=== PATIENT | male | born 1955 | race Hispanic/Latino ===

== ENCOUNTER 2020-07-31 18:26 | Inpatient (IN) | payer OTHER ==
[~2020-07-31] VITALS: Ht 170.2 cm; Wt 78.8 kg
[2020-07-31 19:13] LABS: BASOPHILS % (AUTO) 0.7 % (0.0-5.0); EOSINOPHILS % (AUTO) 3.7 % (0.0-8.0); HEMATOCRIT 45.1 % (42-54); LYMPHOCYTES % (AUTO) 13.9 % (21.0-51.0); MEAN CORPUSCULAR HEMOGLOBIN 29.6 pg (27.0-33.0); MEAN CORPUSCULAR HGB CONC 34.4 g/dL (32.0-36.0); MEAN CORPUSCULAR VOLUME 86.2 fL (79-99); MONOCYTES % (AUTO) 9.6 % (3.0-13.0); NEUTROPHILS % (AUTO) 71.5 % (40.0-77.0); PLATELET COUNT (AUTO) 273 K/uL (130-400); RED BLOOD CELL COUNT(AUTO) 5.23 MIL/uL (4.50-6.20); RED CELL DISTRIBUTION WIDTH 12.7 % (11.0-15.5); WHITE BLOOD COUNT (AUTO) 9.5 K/uL (4.8-10.8)
[2020-07-31] MEDS ORDERED: ONDANSETRON HCL 4 MG/2 ML VIAL ONE (19:19)
[2020-07-31 19:22] LABS: APPEARANCE,URINE Clear (CLEAR); BILIRUBIN,URINE Negative (NEGATIVE); COLOR,URINE Yellow (YELLOW); GLUCOSE, URINE (UA) Negative (NEGATIVE); KETONES,URINE Negative (NEGATIVE); LEUKOCYTE ESTERASE ,URINE Negative (NEGATIVE); NITRATE,URINE Negative (NEGATIVE); OCCULT BLOOD,URINE Negative (NEGATIVE); PROTEIN,URINE Negative (NEGATIVE)
[2020-07-31 19:23] LABS: CREATININE 0.9 mg/dL (0.5-1.5); POTASSIUM 4.2 mmol/L (3.5-5.1)
[2020-07-31 19:27] LABS: ALBUMIN 3.9 g/dL (3.5-5.0); BILIRUBIN,TOTAL 0.6 mg/dL (0.2-1.0); TOTAL PROTEIN, SERUM 7.7 g/dL (6.0-8.3)
[2020-07-31] MEDS ORDERED: SODIUM CHLORIDE 0.9% 1000ML 1,000 ML IV ONE ×2 (19:35→23:01)
[2020-07-31 19:37] LABS: B-TYPE NATRIURETIC PEPTIDE 8 pg/mL (0-100)
[2020-07-31] MEDS ORDERED: IOHEXOL-350 75 ML VIAL IV ONE (20:05)
[2020-07-31] MEDS ORDERED: DIPHENHYDRAMINE HCL 25 MG CAPSULE PO PRN (23:00)
[2020-07-31] MEDS ORDERED: NITROGLYCERIN 0.4 MG SL TAB SL PRN (23:00)
[2020-07-31] MEDS ORDERED: ACETAMINOPHEN 325 MG TAB PO PRN ×2 (23:00)
[2020-08-01] MEDS ORDERED: CLOTRIMAZOLE 30 GM CREAM.GM. TP ONE (00:29)
[2020-08-01 04:37] LABS: HEMATOCRIT 39.5 % (42-54); MEAN CORPUSCULAR HEMOGLOBIN 29.3 pg (27.0-33.0); MEAN CORPUSCULAR HGB CONC 33.9 g/dL (32.0-36.0); MEAN CORPUSCULAR VOLUME 86.4 fL (79-99); PLATELET COUNT (AUTO) 223 K/uL (130-400); RED BLOOD CELL COUNT(AUTO) 4.57 MIL/uL (4.50-6.20); RED CELL DISTRIBUTION WIDTH 12.9 % (11.0-15.5); WHITE BLOOD COUNT (AUTO) 7.7 K/uL (4.8-10.8)
[2020-08-01 04:48] LABS: ALBUMIN 3.2 g/dL (3.5-5.0); CREATININE 0.8 mg/dL (0.5-1.5); MAGNESIUM 1.8 mg/dL (1.80-2.40)
[2020-08-01 04:52] LABS: BASOPHILS % (MANUAL) 2 % (0-2); LYMPHOCYTES % (MANUAL) 22 % (22-44); MAN.DIFF COMMENT-IMPRESSION MANUAL DIFFERENTIAL; MONOCYTES % (MANUAL) 12 % (2-9); PLATELET MORPHOLOGY COMMENT ADEQUATE; SEGMENTED NEUTROPHILS % 64 % (40-70)
[2020-08-01 04:59] LABS: BILIRUBIN,TOTAL 0.7 mg/dL (0.2-1.0); TOTAL PROTEIN, SERUM 6.4 g/dL (6.0-8.3)
[2020-08-01] MEDS ORDERED: ENOXAPARIN SODIUM 30 MG/0.3 ML SQ ONE (07:01)
[2020-08-01] MEDS ORDERED: FAMOTIDINE 20MG TAB 20 MG TAB ONE (07:01)
[2020-08-01 08:50] VITALS: BP 141/95
[2020-08-01 11:00] VITALS: BP 136/86
[2020-08-01] MEDS ORDERED: PHARMACY COMMUNICATION MISC SCH (11:00)
[2020-08-01] MEDS ORDERED: MAGNESIUM CITRATE 296 ML SOLUTION ONE (11:55)
[2020-08-01] MEDS: METRONIDAZOLE 500MG/100ML BAG 100 ML IVPB SCH ×2 (11:58→19:00)
[2020-08-01] MEDS: LEVOFLOXACIN 500 MG/D5W 100 ML 100 ML IV SCH (11:58)
[2020-08-01] MEDS: LACTULOSE 20 GM/30 ML UDCUP PO SCH ×2 (11:59)
[2020-08-01] MEDS: ENOXAPARIN SODIUM 30 MG/0.3 ML SQ SCH (12:00)
[2020-08-01] MEDS: FAMOTIDINE 20MG TAB 20 MG TAB PO SCH ×2 (12:00→21:10)
[2020-08-01] MEDS ORDERED: MAGNESIUM CITRATE 296 ML SOLUTION PO SCH (13:00)
[2020-08-01] MEDS: SIMETHICONE 80 MG TAB.CHEW PO SCH ×2 (13:19→21:10)
[2020-08-01 15:00] VITALS: BP 136/87
[2020-08-01] MEDS ORDERED: PEG 3350/NA SULF,BICARB,CL/KCL 4000 ML SOLN PO SCH (15:00)
[2020-08-01] MEDS ORDERED: KETOROLAC TROMETHAMINE 15MG/ML ONE (16:08)
[2020-08-01] MEDS ORDERED: KETOROLAC TROMETHAMINE 15MG/ML IV PRN (16:15)
[2020-08-01] MEDS ORDERED: DICYCLOMINE HCL 20 MG TAB PO SCH (18:00)
[2020-08-01 19:29] VITALS: BP 135/94
[2020-08-01] MEDS: CLOTRIMAZOLE 30 GM CREAM.GM. TP SCH (21:00)
--- NOTE | 2020-08-01 21:30 | NUR ---
note PAGED DR. BURNS TO INFORM HIM THAT THE PT WAS REFUSING TO TAKE HIS GOLYTLY, MAG CITRATE AND THE TAP WATER ENEMA. PT WAS OFFERED TO HAVE AN NG TUBE PLACED AND HE REFUSED. STATING THAT HE WOULD ONLY GET THE NG TUBE IF HE WAS SEDATED. DR. BURNS SAID IF HE WOULD NOT PREP THEN THEY WOULD NOT BE ABLE TO PROCEED WITH THE COLONOSCOPY. WILL RE-EDUCATE THE PT ON THE IMPORTANCE OF PREPPING AND INTERVENTIONS TO DISIMPACT.
[2020-08-01] MEDS ORDERED: MORPHINE SULFATE 2 MG/ML 1ML SYG IVP ONE (23:00)
[2020-08-01 23:32] VITALS: BP 145/86
[2020-08-02] VITALS (15 sets, daily range): BP systolic 115–153; BP diastolic 66–91
[2020-08-02] MEDS ORDERED: MORPHINE SULFATE 2 MG/ML 1ML SYG ONE (00:12)
[2020-08-02] MEDS: ONDANSETRON HCL 4 MG/2 ML VIAL IV PRN ×2 (00:23→16:59)
--- NOTE | 2020-08-02 01:00 | NUR ---
HOSPITALIST JEAN-CLAUDE WHIPPLE NP MADE AWARE OF PT REFUSING PREP AND NGT.
--- NOTE | 2020-08-02 01:00 | NUR ---
NG TUBE ATTEMPTED TO PLACE NGT. TUBE WAS HALF WAY INSERTED WHEN PT PULLED OUT THE NGT. REPORTS HE CAN "FEEL THE TUBE". PT REFUSING ANOTHER ATTEMPT TO REINSERT.
[2020-08-02] MEDS: METRONIDAZOLE 500MG/100ML BAG 100 ML IVPB SCH ×3 (03:24→20:50)
[2020-08-02] MEDS: SODIUM CHLORIDE 0.9% 1000ML 1,000 ML IV SCH ×2 (03:24→15:56)
--- NOTE | 2020-08-02 05:00 | NUR ---
REFUSED TAP WATER ENEMA FOR THIS TIME.
--- NOTE | 2020-08-02 05:18 | NUR ---
CANCELLED COLONOSCOPY D/T FAILED PREP. PT REFUSED TO TAKE PRESCIBED MEDS FOR PREP. SPOKE TO DR. BURNS AT BEGINING OF SHIFT ABOUT PT NOT WANTING TO COMPLY. REEDUCATED PT SEVERAL TIMES THROUGHOUT SHIFT IMPORTANCE OF PREP FOR COLONOSCOPY AND TO EVACUATE BOWELS- PT CONT TO REFUSE D/T REPORTS OF ABDOMINAL CRAMPS. PAIN MEDICATION WAS ADMIN, PT CONT TO REFUSE.
[2020-08-02 06:04] LABS: HEMATOCRIT 44.2 % (42-54); MEAN CORPUSCULAR HEMOGLOBIN 29.4 pg (27.0-33.0); MEAN CORPUSCULAR HGB CONC 33.7 g/dL (32.0-36.0); MEAN CORPUSCULAR VOLUME 87.4 fL (79-99); RED BLOOD CELL COUNT(AUTO) 5.06 MIL/uL (4.50-6.20); RED CELL DISTRIBUTION WIDTH 12.4 % (11.0-15.5); WHITE BLOOD COUNT (AUTO) 9.9 K/uL (4.8-10.8)
[2020-08-02 06:12] LABS: ALBUMIN 3.3 g/dL (3.5-5.0); CREATININE 0.7 mg/dL (0.5-1.5); MAGNESIUM 1.8 mg/dL (1.80-2.40); POTASSIUM 3.6 mmol/L (3.5-5.1); TOTAL PROTEIN, SERUM 6.7 g/dL (6.0-8.3)
[2020-08-02] MEDS: CLOTRIMAZOLE 30 GM CREAM.GM. TP SCH ×2 (09:00→21:00)
[2020-08-02] MEDS: PHARMACY COMMUNICATION MISC SCH ×2 (09:00→17:00)
[2020-08-02] MEDS: ENOXAPARIN SODIUM 30 MG/0.3 ML SQ SCH (09:00)
[2020-08-02] MEDS: FAMOTIDINE 20MG TAB 20 MG TAB PO SCH ×2 (09:32→20:50)
[2020-08-02] MEDS: SIMETHICONE 80 MG TAB.CHEW PO SCH ×3 (09:32→20:50)
[2020-08-02] MEDS: LEVOFLOXACIN 500 MG/D5W 100 ML 100 ML IV SCH (09:33)
--- NOTE | 2020-08-02 10:03 | NUR ---
PER PATIENT, HE DOES NOT TAKE ANY PRESCRIBED HOME MEDICATIONS AT THIS TIME.
[2020-08-02] MEDS: LACTULOSE 20 GM/30 ML UDCUP PO SCH ×4 (11:00→23:04)
[2020-08-02] MEDS ORDERED: PROPOFOL 10 MG/ML 20ML VIAL IV ONE (11:21)
--- NOTE | 2020-08-02 15:00 | NUR ---
CM NOTE/IA MET WITH PATIENT AT BEDSIDE. PER PATIENT, LIVES WITH HIS AND HIS 80 YR OLD MOTHER, IS INDEPENDENT WITH ADLS, DRIVES, NO HOME HEALTH OR PROVIDER SERVICES, NO DME IN USE AND FEELS SAFE TO RETURN HOME ONCE DISCHARGED FROM HOSPITAL. NOTED SELF REFERRAL/NO INSURANCE. PATIENT GIVEN SELF REFERRAL/MEDICAL PACKET ALONG WITH GOOD RX CARD, PATIENT VERBALIZED UNDERSTANDING OF INFORMATION. Addendum: 08/02/20 at 1502 by FARIDEH INGRAM RN CM Amended: Links added.
[2020-08-02] MEDS: HYDROCODONE/ACETAMINOPHEN 5/325 MG TAB PO PRN ×2 (15:54→21:10)
--- NOTE | 2020-08-02 20:38 | NUR ---
NOTE PT REFUSES TO TAKE HIS GOLYTELY UNTIL HE IS "PAIN FREE". REPEATEDLY REPORTS THAT NO ONE IS TRYING TO HELP HIM. INFORMED HIM THAT HIS PAIN MEDICATION IS NOT AVAILABLE AT THIS TIME, BUT WILL BRING IT TO HIM WHEN IT BECOMES AVAILABLE. PT REPORTS "THAT'S NOT GOOD ENOUGH". INFORMED PT THAT I WOULD CALL THE DR TO TRY AND GET AN ORDER FOR A BREAKTHROUGH PAIN MED, "PT SAYS IT BETTER BE A STRONG ONE. I DON'T WANT TO FEEL ANYTHING". INFORMED JEAN-CLAUDE WHIPPLE NP. PIPE SUPERVISOR ORDERED ONE TIME ORDER PAIN MED- MED PLACED IN [employer]. WILL CARRY OUT ORDERS AND ATTEMPT FOR PT TO CONT WITH GOLYTELY PROCESS.
[2020-08-02] MEDS ORDERED: HYDROMORPHONE HCL 0.5 MG/0.5 ML ML ONE (20:44)
[2020-08-02] MEDS ORDERED: HYDROMORPHONE HCL 0.5 MG/0.5 ML ML IVP SCH (20:45)
--- NOTE | 2020-08-02 21:01 | NUR ---
NOTE PT NOT WANTING TO TAKE LACTULOSE UNTIL HE GETS A PAIN MEDICATION. I INFORMED HIM DILAUDID WAS A PAIN MEDICATION AND HE SAID THAT'S NOT STRONG ENOUGH. HE WILL TAKE THE LACTULOSE WHEN HE TAKES ANOTHER PAIN MEDICATION/
--- NOTE | 2020-08-02 21:12 | NUR ---
NOTE ADMINISTERED HYDROCODONE REQUESTED/ORDERED. WHEN I HANDED THE PT THE MEDICATION IN THE CUP HE REPORTS THAT IT WAS NOT HYDROCODONE. I OPENED THE PACKAGE IN FRONT OF HIM AND SHOWED HIM THE PACKAGE. HE THEN SAID "OH IT IS" AND CONSUMED THE PILL. PT STILL REFUSING TO TAKE THE LACTULOSE AND GOLYTELY UNTIL HE IS "PAIN FREE". INFORMED HIM THAT HE WILL NEED TO BE PREPPED BEFORE THE COLONOSCOPY AND HE SAID HE ALREADY KNOWS THAT. HALF A CONTAINER OF GOLYTELY REMAINS AT BEDSIDE. REFUSED TAP WATER ENEMA AT THIS TIME WELL. WILL TRY AGAIN AT 0500.
--- NOTE | 2020-08-02 23:15 | NUR ---
NOTE PT TOOK THE LACTULOSE SAID HE WAS ONLY TAKING IT SINCE I GOT HIM THE PAIN MEDICATION. INFORMED HIM EVERYTHING THAT HAS BEEN ORDERED IS TOWARDS HIS BENEFIT. PT DID REPORT THAT HE WAS NOT GOING TO TAKE ANYMORE IF THE GOLYTELY, THAT IT MAKES HIM GO TO THE RESTROOM "TOO MUCH". EDUCATED THAT WAS THE PURPOSE OF THE MED AND IT IS TO PREP HIS BOWELS FOR THE COLONOSCOPY. PT CONT TO SAY HE IS "DONE". HE JUST WANTS TO "SLEEP THE REST OF THE NIGHT".
[2020-08-03] VITALS (21 sets, daily range): BP systolic 124–171; BP diastolic 64–102
[2020-08-03] MEDS: PHARMACY COMMUNICATION MISC SCH ×4 (01:00→20:17)
--- NOTE | 2020-08-03 03:20 | NUR ---
LASHONDA CALVERT PT WAS ADMIN IV TORADOL PER NOV. PT REPORTS THAT HE DID NOT "FEEL" THE MEDICATION AND IS REQUESTING MORE. I TOLD HIM THAT MORE PAIN MED IS NOT AVAILABLE AT THIS TIME D/T TIME FOR NEXT DOSE IS TOO SOON. PT VISIBLY UPSET AND RAISING VOICE THAT HE "NEEDS" MORE PAIN MEDICATION "NOW". REPORTS THAT HE WANTS TO BE "PAIN FREE". SPOKE WITH JEAN-CLAUDE WHIPPLE NP ABOUT PAIN MED SITUATION. JEAN-CLAUDE GAVE THE OK TO ADMIN THE NORCO WITH A SMALL SIP OF WATER EVEN THOUGH THE PT IS NPO AND TIME FOR NEXT DOSE TOO SOON. 321- ADMIN PO NORCO. PT THEN REPORTS THAT HE TAKES HIS 'S PAIN MEDICATION AT HOME AND HE NEVER HAS TO WAIT THIS LONG FOR PAIN PILLS. FREQUENT REEDUCATION PROVIDED ON BOWEL PREP PROVIDED WELL. PT HAS NOT COMPLETED GOLYTELY. REPORTS THAT HE WILL TAKE IT ONCE HE HAS NO PAIN. EVEN VERBALIZED THIS TO ANOTHER NURSE DANIELE KONG.
[2020-08-03] MEDS: HYDROCODONE/ACETAMINOPHEN 5/325 MG TAB PO PRN (03:22)
[2020-08-03] MEDS: METRONIDAZOLE 500MG/100ML BAG 100 ML IVPB SCH ×3 (03:22→20:19)
--- NOTE | 2020-08-03 04:00 | NUR ---
WATER TAP ENEMA DONE AT THIS TIME. PT CARA WELL. SOME C/O GAS AND CRAMPING. SEMI SOLID STOOL PIECES EXCRETED.
[2020-08-03 05:33] LABS: BASOPHILS % (AUTO) 0.8 % (0.0-5.0); EOSINOPHILS % (AUTO) 0.8 % (0.0-8.0); HEMATOCRIT 42.9 % (42-54); LYMPHOCYTES % (AUTO) 9.3 % (21.0-51.0); MEAN CORPUSCULAR HEMOGLOBIN 29.4 pg (27.0-33.0); MEAN CORPUSCULAR HGB CONC 33.8 g/dL (32.0-36.0); MEAN CORPUSCULAR VOLUME 86.8 fL (79-99); MONOCYTES % (AUTO) 8.5 % (3.0-13.0); PLATELET COUNT (AUTO) 280 K/uL (130-400); RED BLOOD CELL COUNT(AUTO) 4.94 MIL/uL (4.50-6.20); RED CELL DISTRIBUTION WIDTH 12.6 % (11.0-15.5)
[2020-08-03 06:03] LABS: ALBUMIN 3.5 g/dL (3.5-5.0); CREATININE 0.9 mg/dL (0.5-1.5); POTASSIUM 4.2 mmol/L (3.5-5.1); TOTAL PROTEIN, SERUM 6.9 g/dL (6.0-8.3)
[2020-08-03] MEDS: FAMOTIDINE 20MG TAB 20 MG TAB PO SCH ×2 (09:00→20:19)
[2020-08-03] MEDS: ENOXAPARIN SODIUM 30 MG/0.3 ML SQ SCH (09:00)
[2020-08-03] MEDS: CLOTRIMAZOLE 30 GM CREAM.GM. TP SCH ×2 (09:00→21:00)
[2020-08-03] MEDS ORDERED: HYDROMORPHONE 1 MG/1 ML AMP IVP PRN (09:45)
[2020-08-03] MEDS ORDERED: LUBIPROSTONE 24 MCG CAP PO SCH (09:45)
[2020-08-03] MEDS: HYDROMORPHONE 1 MG/1 ML AMP IVP PRN ×4 (10:15→23:33)
[2020-08-03] MEDS: LACTULOSE 20 GM/30 ML UDCUP PO SCH ×2 (10:49→10:50)
[2020-08-03] MEDS: SODIUM CHLORIDE 0.9% 1000ML 1,000 ML IV SCH ×2 (10:57→22:48)
[2020-08-03] MEDS: LEVOFLOXACIN 500 MG/D5W 100 ML 100 ML IV SCH (11:39)
[2020-08-03] MEDS ORDERED: PROPOFOL 10 MG/ML 20ML VIAL IV ONE (12:44)
[2020-08-03] MEDS: SIMETHICONE 80 MG TAB.CHEW PO SCH ×3 (14:00→20:19)
[2020-08-03] MEDS: PANTOPRAZOLE SODIUM 40 MG TABLET.DR PO SCH (17:16)
[2020-08-03] MEDS: LUBIPROSTONE 24 MCG CAP PO SCH (17:16)
[2020-08-03] MEDS ORDERED: PEG 3350/NA SULF,BICARB,CL/KCL 4000 ML SOLN PO SCH (18:15)
[2020-08-03] MEDS: ONDANSETRON HCL 4 MG/2 ML VIAL IV PRN (19:29)
--- NOTE | 2020-08-03 19:40 | NUR ---
DR. BURNS CALLED: DR. Burns called thru phone to asked if NG tube was inserted to pt. Following orders were given: 1. Once NG tube inserted, have the pt consume 1 galloon tonight and 2 galloons to start at noon jameson (08/04/20). 2. Give Golytely via NG 8oz q [address] pt on clear liquid at breakfast. 4. Check patient's potassium tonight. 5. Place pt on Potassium and Magnesium protocol. 6. Schedule Colonoscopy on ( 08/05/2020) at noon.
--- NOTE | 2020-08-03 19:51 | NUR ---
DR. BURNS ATTEMPTED TO CONTACT DR. BURNS VIA TEXT MESSAGE ([facility] [place]) FOR CLARIFICATION ON MEDICATION ORDER, JERED VIA NG TUBE 8OZ [id number]. NO RESPONSE AT THIS TIME. PASSED INFORMATION ON TO SECURITY CONTROL ROOM OFFICER NURSE DEEPAK.
--- NOTE | 2020-08-03 22:28 | NUR ---
Alprazolam Daughter reported pt was having anxiety attack. Informed on-call hospitalist and ordered Xanax 1 mg po x 1 dose only.
[2020-08-03] MEDS ORDERED: ALPRAZOLAM 1 MG TAB PO ONE (22:30)
[2020-08-03] MEDS ORDERED: POTASSIUM CHLORIDE 10% ELIXIR 20 MEQ/15 ML UDCUP PO PRN (23:15)
[2020-08-03] MEDS ORDERED: MAGNESIUM 2GM PREMIX 50ML 50 ML IV PRN (23:15)
[2020-08-03] MEDS ORDERED: LIDOCAINE HCL-MPF 1% 2ML VIAL IV PRN (23:15)
[2020-08-03] MEDS ORDERED: POTASSIUM CHLORIDE 20 MEQ ERTAB PO PRN (23:15)
--- NOTE | 2020-08-03 23:55 | NUR ---
NGT insertion Explained to pt and daughter. Agreed and verbalized understanding. NG tube 14Fr inserted with the help of my charge Nurse. Pt tolerated the procedure and cooperates very well. Agreed also that he will not going to pull out the NG tube anymore. Pt verbalized he will signed the refusal form already once he pulled it out again.
[2020-08-04] VITALS (25 sets, daily range): BP systolic 100–154; BP diastolic 68–120
[2020-08-04] MEDS: ONDANSETRON HCL 4 MG/2 ML VIAL IV PRN (02:11)
[2020-08-04] MEDS: METRONIDAZOLE 500MG/100ML BAG 100 ML IVPB SCH ×2 (02:50→11:15)
[2020-08-04] MEDS: HYDROMORPHONE 1 MG/1 ML AMP IVP PRN (03:35)
--- NOTE | 2020-08-04 03:50 | NUR ---
Golytely Stopped: Pt was fully awake and alert. Complained that he cannot tolerate the Golytely anymore. Noted shallow breathing with O2Sat at 88-90% Room air. Pt. was immediately hooked to O2 at 2lpm via NC and O2 increased to 94%. Approx. 2.5 L of Golytely was given to pt. Pt. feels abdominal cramping and defecated only a small amount of soft BM. Noted air in the abdomen during auscultation. Golytely via NG stopped. No apparent distress noted
[2020-08-04] MEDS ORDERED: ALPRAZOLAM 1 MG TAB PO ONE (04:45)
[2020-08-04] MEDS ORDERED: ALPRAZOLAM 1 MG TAB ONE (04:45)
--- NOTE | 2020-08-04 04:45 | NUR ---
Anxiety Attack: Informed on-call hospitalist with the following VS: BP: 150/98 ; HR: 106 ; RR: 20 ; Temp: 97.7 and O2Sat at 94% at 2LPm via NC. Ordered to give Alprazolam 1 mg po x 1 dose only.
[2020-08-04] MEDS: SODIUM CHLORIDE 0.9% 1000ML 1,000 ML IV SCH ×3 (06:18→17:15)
--- NOTE | 2020-08-04 06:45 | NUR ---
Decompression Pt was rechecked at this time. He was sleeping but easily woke up when touched. Pt. throw up a moderate amount of greenish fluid and was noted to having . VS are as follows: BP: 144/78 ; HR: 130 ; RR: 25 and O2Sat at 82-85% with O2 at 4lpm via NC. Pt was then put to LIS for decompression. Pt heart rate decreased to 109-115 but O2Sat just stayed between 87-88% with O2 at 4LPM via NC. Pt was then put to non-rebreather mask and O2Sat went up to 92-95%. Pt just went back to sleep. Was asked if he was ok , pt verbalized he feels better. Charge Nurse assisted the greeting card writer during the process. Informed Day shift RN.
[2020-08-04 08:52] LABS: ABG BASE EXCESS -7.6 mmol/L (-2.0-3.0); ABG HCO3 21.5 mmol/L (21.0-28.0); ABG OXYGEN SATURATION 96.3 % (95.0-99.0); ABG PCO2 59 mmHg (35-48)
[2020-08-04] MEDS: FAMOTIDINE 20MG TAB 20 MG TAB PO SCH (09:00)
[2020-08-04] MEDS: SIMETHICONE 80 MG TAB.CHEW PO SCH (09:00)
[2020-08-04] MEDS: CLOTRIMAZOLE 30 GM CREAM.GM. TP SCH ×2 (09:00→20:42)
[2020-08-04] MEDS: PANTOPRAZOLE SODIUM 40 MG TABLET.DR PO SCH (09:00)
[2020-08-04] MEDS: PHARMACY COMMUNICATION MISC SCH ×2 (09:00→16:14)
[2020-08-04 09:33] LABS: BASOPHILS % (AUTO) 0.6 % (0.0-5.0); EOSINOPHILS % (AUTO) 0.3 % (0.0-8.0); LYMPHOCYTES % (AUTO) 6.9 % (21.0-51.0); MEAN CORPUSCULAR HEMOGLOBIN 29.7 pg (27.0-33.0); MEAN CORPUSCULAR HGB CONC 32.6 g/dL (32.0-36.0); MEAN CORPUSCULAR VOLUME 91.1 fL (79-99); MONOCYTES % (AUTO) 6.8 % (3.0-13.0); NEUTROPHILS % (AUTO) 84.9 % (40.0-77.0); PLATELET COUNT (AUTO) 224 K/uL (130-400); RED BLOOD CELL COUNT(AUTO) 4.61 MIL/uL (4.50-6.20); RED CELL DISTRIBUTION WIDTH 13.2 % (11.0-15.5); WHITE BLOOD COUNT (AUTO) 11.2 K/uL (4.8-10.8)
[2020-08-04 09:46] LABS: ALBUMIN 3.2 g/dL (3.5-5.0); BILIRUBIN,TOTAL 0.8 mg/dL (0.2-1.0); CREATININE 0.7 mg/dL (0.5-1.5); MAGNESIUM 1.5 mg/dL (1.80-2.40); PHOSPHORUS 3.7 mg/dL (2.5-4.9); POTASSIUM 4.4 mmol/L (3.5-5.1); TOTAL PROTEIN, SERUM 6.7 g/dL (6.0-8.3)
[2020-08-04] MEDS ORDERED: FUROSEMIDE 10 MG/ML 2ML VIAL IV SCH (10:15)
[2020-08-04] MEDS: LUBIPROSTONE 24 MCG CAP PO SCH ×2 (10:44→16:14)
[2020-08-04] MEDS: LACTULOSE 20 GM/30 ML UDCUP PO SCH (11:00)
[2020-08-04] MEDS: ENOXAPARIN SODIUM 30 MG/0.3 ML SQ SCH (11:16)
[2020-08-04] MEDS ORDERED: LORAZEPAM 2 MG/ML 1 ML VIAL IVP PRN (11:45)
[2020-08-04] MEDS ORDERED: PEG 3350/NA SULF,BICARB,CL/KCL 4000 ML SOLN PO SCH (12:00)
[2020-08-04] MEDS ORDERED: MAGNESIUM 2GM PREMIX 50ML 50 ML IV SCH (12:15)
[2020-08-04] MEDS: ACETYLCYSTEINE 10% 100MG/ML 4ML VIAL PO SCH ×2 (12:15→16:15)
--- NOTE | 2020-08-04 13:00 | NUR ---
TRANSFER TO ICU PT ARRIVED TO ICU #[id number] AT 1300. PT PLACED ON BIPAP AND FIO2 INCREASED TO REACH ADEQUATE SPO2 LEVELS. PT ABDOMEN COMPLETELY DISTENDED, COMPLAINING OF ABDOMINAL PAIN. DR. LA WAS CALLED TO INFORM OF CONSULT. MURILLO CATHETER PLACED AND IAP 13.
--- NOTE | 2020-08-04 13:00 | NUR ---
NOTE PATIENT TRANSFERRED TO ROM 217 PER GURDEEP DONOHUE'S ORDERS FOR SHE WAS CONSULTED FOR CRITICAL CARE. DR HOUSTON ORDERED IT SINCE THIS AM PATIENT STARTED HAVING INCREASED SOB AND WAS UP TO 100% NRB AND SATS 93%. BBS DIMINISHED AND ABDOMEN ENLARGED AND HARD TO TOUCH. PATIENT WAS SUPPOSED TO BE GETTING PREPPED FOR COLONOSCOPY AND INSTEAD HE IS ON LIWS THROUGH NGT. NGT WAS ADJUSTED ABOUT 6 CM ADVANCED SINCE THERE WAS NOT MUCH OUTPUT.
[2020-08-04] MEDS ORDERED: HYDROMORPHONE HCL 0.5 MG/0.5 ML ML IVP PRN (13:30)
--- NOTE | 2020-08-04 13:40 | NUR ---
NOTE SPOKE TO DR LA AND RELAYED INFORMATION REGARDING EMERGENT RESULTS ABOUT CT ABD AND PELVIS CALLED TO ME PER RADIOLOGIST. WAS MADE AWARE THAT PATIENT COULD HAVE POSSIBLE ISCHEMIC BOWEL. ALSO TOLD ME THAT HE NOTED AIR IN THE COLON AND WALL OF THE COLON. DR LA WAS MADE AWARE OF THIS AND ALSO OF THE CONSULT THAT WAS JUST PLACED.
[2020-08-04] MEDS ORDERED: HYDROMORPHONE HCL 0.5 MG/0.5 ML ML ONE (13:42)
[2020-08-04] MEDS ORDERED: VANCOMYCIN 1GM+NS 250ML 250 ML IV SCH (13:45)
[2020-08-04] MEDS ORDERED: VANCOMYCIN PROTOCOL PER PHARMACY IV SCH (13:45)
[2020-08-04] MEDS: ZOSYN 3.375GM+NS 50ML 50 ML IV SCH ×2 (13:58→20:42)
[2020-08-04] MEDS ORDERED: COMPOUND IV REFRIGERATED 1 EACH IVSOLN MISC PRN (14:00)
[2020-08-04] MEDS ORDERED: VANCOMYCIN 1.75 GM in SODIUM CHLORIDE 0.9% 250 ML IV SCH (14:00)
[2020-08-04 14:05] LABS: ABG BASE EXCESS -5.7 mmol/L (-2.0-3.0); ABG HCO3 19.6 mmol/L (21.0-28.0); ABG PCO2 38 mmHg (35-48)
[2020-08-04] MEDS: M.V.I. IV [ADULT] 10 ML, FOLIC ACID 1 MG, THIAMINE HCL 100 MG in SODIUM CHLORIDE 0.9% 1... IV SCH (16:08)
[2020-08-04 16:13] LABS: INR 1.14 (0.85-1.15); PARTIAL THROMBOPLASTIN TIME 25.3 SEC (26.3-35.5); PROTHROMBIN TIME 12.2 SEC (9.6-11.6)
--- NOTE | 2020-08-04 16:30 | NUR ---
DR. LA ROUNDS DR. LA WITH PA AT BEDSIDE. REVIEWED PT RECENT CT SCAN AND COLONOSCOPY REPORTS. HAS SPOKEN WITH PT AND DAUGHTER OF MEDICAL PLAN. NO ORDERS FOR SURGERY TODAY.
[2020-08-04] MEDS: MORPHINE SULFATE 2 MG/ML 1ML SYG IVP PRN (16:51)
[2020-08-04] MEDS: IPRATROPIUM/ALBUTEROL SULFATE 3 ML SOLUTION IH SCH (18:17)
[2020-08-04] MEDS: FAMOTIDINE/PF 20 MG/2 ML VIAL IV SCH (20:42)
--- NOTE | 2020-08-04 20:45 | NUR ---
STATUS C/O PAIN TOO EARLY FOR MORPHINE. MD CALLED FOR ORDERS.
--- NOTE | 2020-08-04 20:50 | NUR ---
STATUS CALL RECEIVED FROM MD AND INFORMED OF NOT GETTING RELIEF FROM MORPHINE. ORDERS RECEIVED AND CARRIED OUT.
[2020-08-04] MEDS ORDERED: KETOROLAC TROMETHAMINE 15MG/ML ONE (20:59)
[2020-08-04] MEDS ORDERED: KETOROLAC TROMETHAMINE 15MG/ML IV SCH (21:00)
[2020-08-04] MEDS ORDERED: MORPHINE SULFATE 2 MG/ML 1ML SYG IVP ONE (21:00)
[2020-08-05] VITALS (22 sets, daily range): BP systolic 88–156; BP diastolic 50–90
[2020-08-05] MEDS ORDERED: IPRATROPIUM/ALBUTEROL SULFATE 3 ML SOLUTION IH SCH
[2020-08-05] MEDS: ACETYLCYSTEINE 10% 100MG/ML 4ML VIAL PO SCH ×4 (00:15→18:15)
[2020-08-05] MEDS: IPRATROPIUM/ALBUTEROL SULFATE 3 ML SOLUTION IH SCH ×5 (00:35→23:13)
[2020-08-05] MEDS: PHARMACY COMMUNICATION MISC SCH ×3 (01:00→17:00)
[2020-08-05 03:50] LABS: BASOPHILS % (AUTO) 0.3 % (0.0-5.0); EOSINOPHILS % (AUTO) 0.4 % (0.0-8.0); HEMATOCRIT 35.9 % (42-54); LYMPHOCYTES % (AUTO) 7.6 % (21.0-51.0); MEAN CORPUSCULAR HEMOGLOBIN 30.1 pg (27.0-33.0); MEAN CORPUSCULAR HGB CONC 34.3 g/dL (32.0-36.0); MONOCYTES % (AUTO) 7.5 % (3.0-13.0); NEUTROPHILS % (AUTO) 83.9 % (40.0-77.0); PLATELET COUNT (AUTO) 240 K/uL (130-400); RED BLOOD CELL COUNT(AUTO) 4.08 MIL/uL (4.50-6.20); RED CELL DISTRIBUTION WIDTH 13.2 % (11.0-15.5); WHITE BLOOD COUNT (AUTO) 11.4 K/uL (4.8-10.8)
[2020-08-05 04:10] LABS: ALBUMIN 2.6 g/dL (3.5-5.0); BILIRUBIN,DIRECT 0.3 mg/dL (0.0-0.3); BILIRUBIN,TOTAL 0.7 mg/dL (0.2-1.0); CREATININE 0.8 mg/dL (0.5-1.5); POTASSIUM 3.2 mmol/L (3.5-5.1); TOTAL PROTEIN, SERUM 5.4 g/dL (6.0-8.3)
[2020-08-05] MEDS: MORPHINE SULFATE 2 MG/ML 1ML SYG IVP PRN ×2 (04:37→11:08)
[2020-08-05] MEDS: ZOSYN 3.375GM+NS 50ML 50 ML IV SCH ×3 (05:33→21:04)
[2020-08-05] MEDS: SODIUM CHLORIDE 0.9% 1000ML 1,000 ML IV SCH ×2 (06:21→19:55)
[2020-08-05 06:33] LABS: ABG BASE EXCESS -0.9 mmol/L (-2.0-3.0); ABG HCO3 23.8 mmol/L (21.0-28.0); ABG OXYGEN SATURATION 97.3 % (95.0-99.0); ABG PCO2 40 mmHg (35-48)
[2020-08-05] MEDS: LUBIPROSTONE 24 MCG CAP PO SCH ×2 (07:24→17:00)
--- NOTE | 2020-08-05 08:00 | NUR ---
HELD LOVENOX FOR POSSIBLE SX/GI PROCEDURE
[2020-08-05] MEDS: THIAMINE HCL 100 MG/ML 2ML VIAL IVP SCH (08:37)
[2020-08-05] MEDS: FAMOTIDINE/PF 20 MG/2 ML VIAL IV SCH ×2 (08:37→21:04)
[2020-08-05] MEDS ORDERED: POTASSIUM CHLORIDE 10MEQ/100ML 100 ML IV ONE ×2 (08:38→14:36)
[2020-08-05] MEDS: VANCOMYCIN 750MG + NS 250 ML IV SCH ×4 (08:41→21:05)
[2020-08-05] MEDS: CLOTRIMAZOLE 30 GM CREAM.GM. TP SCH ×2 (09:00→21:00)
[2020-08-05] MEDS: ENOXAPARIN SODIUM 30 MG/0.3 ML SQ SCH (09:00)
--- NOTE | 2020-08-05 09:00 | NUR ---
GENERAL SX CONSULT Elaine DANIEL AT BEDSIDE. SPOKE WITH PT OF NO NEED FOR SX AT THIS MOMENT. OKAY TO SMALL AMOUNTS OF ICECHIPS.
[2020-08-05] MEDS: M.V.I. IV [ADULT] 10 ML, FOLIC ACID 1 MG, THIAMINE HCL 100 MG in SODIUM CHLORIDE 0.9% 1... IV SCH (09:36)
--- NOTE | 2020-08-05 16:50 | NUR ---
PT WENT TO GI LAB FOR A COLONOSCOPY WITH COLON DECOMPRESSION AT 1650.
[2020-08-05] MEDS ORDERED: PROPOFOL 10 MG/ML 20ML VIAL IV ONE (17:07)
--- NOTE | 2020-08-05 18:06 | NUR ---
SPOKE WITH DR BURNS S/P ATTEMPTED COLONOSCOPY. COLONOSCOPY NOT DONE DUE TO PNEUMATOSIS. HE STATED THAT PT NEEDS TO BE AMBULATED FREQUENTLY AND THAT CAN BE STARTED ON SMALL SIPS OF CLEAR LIQUIDS, CONTINUOUSLY ASSESS DISTENTION. POSSIBILITY OF RECTAL TUBE PLACEMENT FOR TOMORROW. PT IS SITTING ON THE SIDE OF THE BED COMFORTABLE, STATED HE FEELS SOB WITH EXERTION. DAUGHTER AT BEDSIDE AND UPDATED ON CONDITION.
[2020-08-05] MEDS ORDERED: ACETAMINOPHEN 325 MG TAB PO PRN (18:15)
[2020-08-05] MEDS ORDERED: METHYLNALTREXONE BROMIDE 12 MG/0.6 ML VIAL SQ SCH (21:00)
[2020-08-06] VITALS (12 sets, daily range): BP systolic 120–150; BP diastolic 65–94
[2020-08-06] MEDS: ACETYLCYSTEINE 10% 100MG/ML 4ML VIAL PO SCH ×3 (00:15→18:27)
[2020-08-06] MEDS: PHARMACY COMMUNICATION MISC SCH ×5 (01:00→21:45)
[2020-08-06 03:30] LABS: HEMATOCRIT 32.8 % (42-54); MEAN CORPUSCULAR HEMOGLOBIN 29.4 pg (27.0-33.0); MEAN CORPUSCULAR HGB CONC 33.8 g/dL (32.0-36.0); RED BLOOD CELL COUNT(AUTO) 3.77 MIL/uL (4.50-6.20); RED CELL DISTRIBUTION WIDTH 13.1 % (11.0-15.5); WHITE BLOOD COUNT (AUTO) 9.6 K/uL (4.8-10.8)
[2020-08-06 04:17] LABS: CREATININE 0.6 mg/dL (0.5-1.5); CRP QUANTITATIVE 171.9 mg/L (0.00-9.0); PHOSPHORUS 1.9 mg/dL (2.5-4.9)
[2020-08-06] MEDS: ZOSYN 3.375GM+NS 50ML 50 ML IV SCH ×3 (04:48→21:15)
[2020-08-06 04:50] LABS: POTASSIUM 2.9 mmol/L (3.5-5.1)
[2020-08-06] MEDS: POTASSIUM CHLORIDE 20MEQ/100ML 100 ML IV PRN ×3 (04:56→16:04)
--- NOTE | 2020-08-06 05:25 | NUR ---
IAP MEASURED AT 1 THIS AM.
[2020-08-06] MEDS: MORPHINE SULFATE 2 MG/ML 1ML SYG IVP PRN ×2 (06:19→22:11)
[2020-08-06] MEDS: IPRATROPIUM/ALBUTEROL SULFATE 3 ML SOLUTION IH SCH ×3 (07:19→18:26)
[2020-08-06] MEDS: LUBIPROSTONE 24 MCG CAP PO SCH ×2 (08:00→21:40)
[2020-08-06] MEDS: CLOTRIMAZOLE 30 GM CREAM.GM. TP SCH ×2 (09:00→21:00)
[2020-08-06] MEDS: M.V.I. IV [ADULT] 10 ML, FOLIC ACID 1 MG, THIAMINE HCL 100 MG in SODIUM CHLORIDE 0.9% 1... IV SCH (09:00)
[2020-08-06] MEDS: ENOXAPARIN SODIUM 30 MG/0.3 ML SQ SCH (09:29)
[2020-08-06] MEDS: FAMOTIDINE/PF 20 MG/2 ML VIAL IV SCH ×2 (09:29→21:15)
[2020-08-06] MEDS: THIAMINE HCL 100 MG/ML 2ML VIAL IVP SCH (09:29)
[2020-08-06] MEDS: SODIUM CHLORIDE 0.9% 1000ML 1,000 ML IV SCH ×2 (09:30→22:35)
[2020-08-06] MEDS: VANCOMYCIN 750MG + NS 250 ML IV SCH ×4 (09:55→22:58)
[2020-08-06] MEDS ORDERED: POTASSIUM PHOS 15 mMOL+NS250ML 250 ML IV PRN (15:45)
[2020-08-06] MEDS ORDERED: M.V.I. IV [ADULT] 10 ML in CLINIMIX E 4.25%-5% SOLUTION 2,000 ML IV ONE (16:00)
[2020-08-07] MEDS: ACETYLCYSTEINE 10% 100MG/ML 4ML VIAL PO SCH ×4 (00:15→22:51)
[2020-08-07] MEDS: PHARMACY COMMUNICATION MISC SCH ×4 (01:00→17:00)
[2020-08-07 03:51] VITALS: BP 149/94
[2020-08-07] MEDS: ZOSYN 3.375GM+NS 50ML 50 ML IV SCH ×3 (04:47→21:19)
[2020-08-07] MEDS: MORPHINE SULFATE 2 MG/ML 1ML SYG IVP PRN ×3 (05:52→22:03)
[2020-08-07 06:00] LABS: MEAN CORPUSCULAR HEMOGLOBIN 29.3 pg (27.0-33.0); MEAN CORPUSCULAR HGB CONC 33.3 g/dL (32.0-36.0); MEAN CORPUSCULAR VOLUME 87.8 fL (79-99); RED BLOOD CELL COUNT(AUTO) 4.1 MIL/uL (4.50-6.20); RED CELL DISTRIBUTION WIDTH 13.2 % (11.0-15.5); WHITE BLOOD COUNT (AUTO) 9.8 K/uL (4.8-10.8)
[2020-08-07 06:10] LABS: CREATININE 0.5 mg/dL (0.5-1.5); PHOSPHORUS 2.8 mg/dL (2.5-4.9); POTASSIUM 3.6 mmol/L (3.5-5.1)
[2020-08-07] MEDS: IPRATROPIUM/ALBUTEROL SULFATE 3 ML SOLUTION IH SCH ×5 (06:39→23:43)
[2020-08-07] MEDS ORDERED: DIATR MEGLU/DIATRIZOATE SODIUM 30 ML BOTTLE ONE (06:55)
[2020-08-07] MEDS: LUBIPROSTONE 24 MCG CAP PO SCH ×2 (08:00→17:00)
[2020-08-07] MEDS: CLOTRIMAZOLE 30 GM CREAM.GM. TP SCH ×2 (09:00→21:00)
[2020-08-07 09:04] VITALS: BP 134/103
[2020-08-07] MEDS ORDERED: VANCOMYCIN 2 GM in SODIUM CHLORIDE 0.9% 500ML 500 ML IV SCH (09:15)
[2020-08-07] MEDS: THIAMINE HCL 100 MG/ML 2ML VIAL IVP SCH (09:59)
[2020-08-07] MEDS: FAMOTIDINE/PF 20 MG/2 ML VIAL IV SCH ×2 (09:59→21:19)
[2020-08-07] MEDS: ENOXAPARIN SODIUM 30 MG/0.3 ML SQ SCH (10:00)
[2020-08-07] MEDS: SODIUM CHLORIDE 0.9% 1000ML 1,000 ML IV SCH (11:55)
[2020-08-07 12:10] VITALS: BP 147/69
--- NOTE | 2020-08-07 13:22 | NUR ---
EVELIO IN TO SEE PT.CK WITH PRIMARY RE. REMOVAL OF F/C.
[2020-08-07 16:30] VITALS: BP 140/63
--- NOTE | 2020-08-07 18:25 | NUR ---
MURILLO CATH REMOVED NOW PER ORDER OF DR. SUERO, EMPTIED OF 600ML OF LIGHT LAURA URINE.
[2020-08-07 19:00] VITALS: BP 121/80
[2020-08-07] MEDS: VANCOMYCIN 1.5 GM in SODIUM CHLORIDE 0.9% 250 ML IV SCH (21:19)
[2020-08-07] MEDS: NEUTRA-PHOS PACKET 1 EACH PO SCH (22:52)
[2020-08-07 23:46] VITALS: BP 142/87
[2020-08-08] MEDS: ACETYLCYSTEINE 10% 100MG/ML 4ML VIAL PO SCH ×4 (00:15→18:15)
[2020-08-08] MEDS: PHARMACY COMMUNICATION MISC SCH ×3 (01:00→17:00)
[2020-08-08] MEDS: SODIUM CHLORIDE 0.9% 1000ML 1,000 ML IV SCH ×2 (01:15→14:35)
[2020-08-08 04:00] VITALS: BP 133/79
[2020-08-08] MEDS: ZOSYN 3.375GM+NS 50ML 50 ML IV SCH ×3 (05:12→21:34)
[2020-08-08 06:04] LABS: BASOPHILS % (AUTO) 0.5 % (0.0-5.0); EOSINOPHILS % (AUTO) 0.8 % (0.0-8.0); HEMATOCRIT 39.9 % (42-54); LYMPHOCYTES % (AUTO) 4.7 % (21.0-51.0); MEAN CORPUSCULAR HEMOGLOBIN 29.3 pg (27.0-33.0); MEAN CORPUSCULAR HGB CONC 33.6 g/dL (32.0-36.0); MEAN CORPUSCULAR VOLUME 87.1 fL (79-99); MONOCYTES % (AUTO) 9.1 % (3.0-13.0); PLATELET COUNT (AUTO) 317 K/uL (130-400); RED BLOOD CELL COUNT(AUTO) 4.58 MIL/uL (4.50-6.20); WHITE BLOOD COUNT (AUTO) 9.8 K/uL (4.8-10.8)
[2020-08-08] MEDS: IPRATROPIUM/ALBUTEROL SULFATE 3 ML SOLUTION IH SCH ×3 (06:39→18:24)
[2020-08-08 06:56] LABS: CREATININE 0.5 mg/dL (0.5-1.5); MAGNESIUM 1.9 mg/dL (1.80-2.40)
[2020-08-08 07:17] VITALS: BP 149/90
[2020-08-08] MEDS: LUBIPROSTONE 24 MCG CAP PO SCH ×2 (08:00→17:00)
[2020-08-08] MEDS: ONDANSETRON HCL 4 MG/2 ML VIAL IV PRN (08:44)
--- NOTE | 2020-08-08 08:50 | NUR ---
LG. EDUARD MYERS. EMESIS, SMELLS LIKE STOOL, CONTINUES O REFUSE NG. STATES IS GOING WAIT UNTIL HIS DAUGHTERS GET HERE AND TALK TO THE
[2020-08-08] MEDS: CLOTRIMAZOLE 30 GM CREAM.GM. TP SCH ×2 (09:00→21:00)
[2020-08-08] MEDS: ENOXAPARIN SODIUM 30 MG/0.3 ML SQ SCH (09:00)
[2020-08-08] MEDS: NEUTRA-PHOS PACKET 1 EACH PO SCH ×3 (09:00→21:35)
--- NOTE | 2020-08-08 09:00 | NUR ---
REFUSES PLACEMENT OF NG TUBE, ADVISED OF ALL THE BENEFITS OF HAVING IT PLUS THE RISK OF NOT HAVING IT WHICH 1 OF THEM IS ASPIRATION HE IS LAYING FLAT IN BED BECAUSE IT IS VERY UNCOMFORTABLE TO TRY AND SIT UP DUE TO ABD. DISTENTION.WAITING ON HIS DAUGHTERS TO COME IN, WANTS TO TALK TO THEM AND EXPLAIN WHATS GOING ON.
--- NOTE | 2020-08-08 09:44 | NUR ---
SPOKE WITH PATIENT ABOUT PLACING NG TUBE (PATIENT HAS BEEN HAVING EMESIS). PATIENT REFUSED AT THIS TIME. HE STATES HE HAS HAD IT BEFORE AND DID NOT LIKE IT. PATIENT CONTINUES REMOVING HIS BIPAP MASK AND IS NOTED TO HAVE SHORTNESS OF BREATH. REINFORCED IMPORTANCE OF LEAVING BIPAP MASK ON. HE RESPONSE " LADY I WOULD KEEP IT ON ONLY I HAVE TO BE THROWING UP"...INFORMED PATIENT THAT THE NG TUBE WOULD HELP RELIEF THE NAUSEA AND VOMITING AND WOULD BE APPROPRIATE TO HAVE IT...PATIENT CONTINUES TO REFUSE AND STATED HE IS WAITING TO TALK TO HIS DOCTOR AND DAUGHTERS FOR A "GAME PLAN". REPORTED OFF TO DANIELE TIWARI PRIMARY NURSE.
--- NOTE | 2020-08-08 10:40 | NUR ---
REFUSES TO SIGN REFUSAL TO SUBMIT TO TREATMENT/PROCEDURE FORM, DAUGHTER STATES AFTER THEY TALK TO THE DR. THEY WILL CONVINCE HIM TO HAVE TUBE PLACED.
[2020-08-08 11:00] VITALS: BP 153/99
[2020-08-08] MEDS ORDERED: KETOROLAC TROMETHAMINE 30MG/ML IV PRN (11:45)
[2020-08-08] MEDS ORDERED: KETOROLAC TROMETHAMINE 30MG/ML ONE (12:05)
[2020-08-08] MEDS: THIAMINE HCL 100 MG/ML 2ML VIAL IVP SCH (12:24)
[2020-08-08] MEDS: FAMOTIDINE/PF 20 MG/2 ML VIAL IV SCH ×2 (12:24→21:34)
[2020-08-08] MEDS: VANCOMYCIN 1.5 GM in SODIUM CHLORIDE 0.9% 250 ML IV SCH ×2 (12:25→21:34)
[2020-08-08] MEDS ORDERED: MORPHINE SULFATE 2 MG/ML 1ML SYG ONE (15:22)
[2020-08-08 16:00] VITALS: BP 141/91
--- NOTE | 2020-08-08 16:19 | NUR ---
14 FR. NG PLACED RT. NARE. CONNECTED TO LOW WALL INTERMITTENT SUCTION, PLACEMENT VERIFIED WITH 2 NURSES. VERY LITTLE RETURN, JUST A LOT OF AIR. PT. CO OPERATIVE.
[2020-08-08] MEDS ORDERED: MORPHINE SULFATE 2 MG/ML 1ML SYG IVP ONE (16:30)
[2020-08-08] MEDS ORDERED: MAGNESIUM 2GM PREMIX 50ML 50 ML IV SCH (17:00)
--- NOTE | 2020-08-08 17:48 | NUR ---
NG TUBE PLACEMENT VERIFIED BY X-RAY AND IN GOOD PLACEMENT.
[2020-08-08 20:04] VITALS: BP 144/89
[2020-08-08] MEDS: M.V.I. IV [ADULT] 10 ML in CLINIMIX E 4.25%-5% SOLUTION 2,000 ML IV SCH (21:26)
[2020-08-08] MEDS: METOCLOPRAMIDE 10 MG/2 ML VIAL IVP SCH (21:34)
[2020-08-09 00:08] VITALS: BP 139/84
[2020-08-09] MEDS: IPRATROPIUM/ALBUTEROL SULFATE 3 ML SOLUTION IH SCH ×4 (00:14→18:00)
[2020-08-09] MEDS: ACETYLCYSTEINE 10% 100MG/ML 4ML VIAL PO SCH ×4 (00:15→17:15)
[2020-08-09] MEDS: PHARMACY COMMUNICATION MISC SCH (00:40)
[2020-08-09] MEDS: SODIUM CHLORIDE 0.9% 1000ML 1,000 ML IV SCH ×2 (00:40→17:15)
[2020-08-09 04:08] VITALS: BP 134/83
[2020-08-09] MEDS: ZOSYN 3.375GM+NS 50ML 50 ML IV SCH ×3 (04:28→20:56)
[2020-08-09] MEDS ORDERED: MORPHINE SULFATE 2 MG/ML 1ML SYG ONE (05:32)
[2020-08-09] MEDS: METOCLOPRAMIDE 10 MG/2 ML VIAL IVP SCH ×3 (05:34→22:25)
[2020-08-09 06:24] LABS: BASOPHILS % (AUTO) 0.6 % (0.0-5.0); EOSINOPHILS % (AUTO) 2.7 % (0.0-8.0); HEMATOCRIT 42.5 % (42-54); LYMPHOCYTES % (AUTO) 8.2 % (21.0-51.0); MEAN CORPUSCULAR HEMOGLOBIN 29.2 pg (27.0-33.0); MEAN CORPUSCULAR HGB CONC 33.6 g/dL (32.0-36.0); MEAN CORPUSCULAR VOLUME 86.7 fL (79-99); MONOCYTES % (AUTO) 15.9 % (3.0-13.0); NEUTROPHILS % (AUTO) 71.3 % (40.0-77.0); PLATELET COUNT (AUTO) 385 K/uL (130-400); RED CELL DISTRIBUTION WIDTH 13.1 % (11.0-15.5); WHITE BLOOD COUNT (AUTO) 6.7 K/uL (4.8-10.8)
[2020-08-09 06:36] LABS: AMMONIA 34 umol/L (11-32)
[2020-08-09] MEDS: VANCOMYCIN 1.25 GM in SODIUM CHLORIDE 0.9% 250 ML IV SCH ×3 (07:26→22:25)
[2020-08-09 07:44] LABS: ERYTHROCYTE SEDIMENTATION RATE 5 MM/HR (0-20)
[2020-08-09 07:52] VITALS: BP 156/89
[2020-08-09] MEDS: LUBIPROSTONE 24 MCG CAP PO SCH ×2 (08:00→17:00)
[2020-08-09] MEDS: THIAMINE HCL 100 MG/ML 2ML VIAL IVP SCH (09:00)
[2020-08-09] MEDS: FAMOTIDINE/PF 20 MG/2 ML VIAL IV SCH ×2 (09:00→20:56)
[2020-08-09] MEDS: CLOTRIMAZOLE 30 GM CREAM.GM. TP SCH ×2 (09:00→20:57)
[2020-08-09] MEDS: ENOXAPARIN SODIUM 30 MG/0.3 ML SQ SCH (09:01)
[2020-08-09 12:00] VITALS: BP 151/81
[2020-08-09 16:00] VITALS: BP 143/85
[2020-08-09 20:09] VITALS: BP 133/98
[2020-08-09] MEDS ORDERED: M.V.I. IV [ADULT] 10 ML in CLINIMIX E 4.25%-5% SOLUTION 2,000 ML IV SCH (21:00)
[2020-08-09] MEDS: M.V.I. IV [ADULT] 10 ML in CLINIMIX E 4.25%-5% SOLUTION 2,000 ML IV SCH (21:00)
[2020-08-10] VITALS (7 sets, daily range): BP systolic 131–166; BP diastolic 80–98
[2020-08-10 05:09] LABS: HEMATOCRIT 38.4 % (42-54); MEAN CORPUSCULAR HEMOGLOBIN 29.4 pg (27.0-33.0); MEAN CORPUSCULAR HGB CONC 34.1 g/dL (32.0-36.0); MEAN CORPUSCULAR VOLUME 86.3 fL (79-99); PLATELET COUNT (AUTO) 342 K/uL (130-400); RED BLOOD CELL COUNT(AUTO) 4.45 MIL/uL (4.50-6.20); WHITE BLOOD COUNT (AUTO) 5.9 K/uL (4.8-10.8)
[2020-08-10 05:20] LABS: B-TYPE NATRIURETIC PEPTIDE 8 pg/mL (0-100)
[2020-08-10 05:21] LABS: ALANINE AMINOTRANSFERASE 29 U/L (12-78); ALBUMIN 2.6 g/dL (3.5-5.0); ASPARTATE AMINOTRANSFERASE 30 U/L (10-37); BILIRUBIN,TOTAL 0.8 mg/dL (0.2-1.0); CARBON DIOXIDE 28 mmol/L (21-32); CHLORIDE 104 mmol/L (101-111); CREATININE 0.5 mg/dL (0.5-1.5); GLOMERULAR FILTR. RATE CALC 178 mL/min (>60); GLUCOSE,RANDOM 105 mg/dL (70-105); PHOSPHORUS 3.5 mg/dL (2.5-4.9); POTASSIUM 3.6 mmol/L (3.5-5.1); SODIUM SERUM 137 mmol/L (136-145); UREA NITROGEN, BLOOD 10 mg/dL (7-18)
[2020-08-10 05:28] LABS: BAND NEUTROPHILS % (MANUAL) 4 % (0-2); BASOPHILS % (MANUAL) 1 % (0-2); EOSINOPHILS % (MANUAL) 5 % (1-6); LYMPHOCYTES % (MANUAL) 15 % (22-44); MONOCYTES % (MANUAL) 15 % (2-9); SEGMENTED NEUTROPHILS % 60 % (40-70)
[2020-08-10 05:29] LABS: MAN.DIFF COMMENT-IMPRESSION MANUAL DIFFERENTIAL; PLATELET MORPHOLOGY COMMENT ADEQUATE
[2020-08-10] MEDS: IPRATROPIUM/ALBUTEROL SULFATE 3 ML SOLUTION IH SCH (06:00)
[2020-08-10] MEDS: SODIUM CHLORIDE 0.9% 1000ML 1,000 ML IV SCH ×2 (06:54→21:53)
[2020-08-10] MEDS: METOCLOPRAMIDE 10 MG/2 ML VIAL IVP SCH ×3 (06:54→21:53)
[2020-08-10] MEDS: LUBIPROSTONE 24 MCG CAP PO SCH ×2 (08:00→16:44)
[2020-08-10] MEDS: ONDANSETRON HCL 4 MG/2 ML VIAL IV PRN (08:35)
[2020-08-10] MEDS: CLOTRIMAZOLE 30 GM CREAM.GM. TP SCH ×2 (09:00→21:53)
[2020-08-10] MEDS: FAMOTIDINE/PF 20 MG/2 ML VIAL IV SCH ×2 (09:54→20:03)
[2020-08-10] MEDS: ENOXAPARIN SODIUM 30 MG/0.3 ML SQ SCH (09:54)
[2020-08-10] MEDS: THIAMINE HCL 100 MG/ML 2ML VIAL IVP SCH (09:54)
[2020-08-10] MEDS ORDERED: IPRATROPIUM/ALBUTEROL SULFATE 3 ML SOLUTION IH PRN (11:45)
[2020-08-10] MEDS: ACETYLCYSTEINE 10% 100MG/ML 4ML VIAL PO SCH ×2 (11:52→18:13)
--- NOTE | 2020-08-10 15:00 | NUR ---
ANGELA HOLDEN PA HERE TO SEE PATIENT. TOLD PATIENT ABOUT POSSIBILITY OF COLONOSCOPY BUT WOULD TALK TO DR. BESSIE CHE.
[2020-08-10] MEDS: HYDROMORPHONE 1 MG/1 ML AMP IVP PRN (22:33)
[2020-08-11] MEDS: HYDROMORPHONE 1 MG/1 ML AMP IVP PRN ×5 (00:13→05:09)
[2020-08-11] MEDS: ACETYLCYSTEINE 10% 100MG/ML 4ML VIAL PO SCH ×4 (00:15→18:15)
[2020-08-11 03:52] VITALS: BP 146/90
[2020-08-11] MEDS: METOCLOPRAMIDE 10 MG/2 ML VIAL IVP SCH ×3 (05:09→20:16)
[2020-08-11 06:13] LABS: BASOPHILS % (AUTO) 1.4 % (0.0-5.0); EOSINOPHILS % (AUTO) 6.1 % (0.0-8.0); HEMATOCRIT 38.4 % (42-54); LYMPHOCYTES % (AUTO) 20.1 % (21.0-51.0); MEAN CORPUSCULAR HEMOGLOBIN 29.1 pg (27.0-33.0); MEAN CORPUSCULAR HGB CONC 33.3 g/dL (32.0-36.0); MEAN CORPUSCULAR VOLUME 87.3 fL (79-99); MONOCYTES % (AUTO) 25.9 % (3.0-13.0); NEUTROPHILS % (AUTO) 44.5 % (40.0-77.0); PLATELET COUNT (AUTO) 316 K/uL (130-400); RED CELL DISTRIBUTION WIDTH 12.9 % (11.0-15.5); WHITE BLOOD COUNT (AUTO) 2.9 K/uL (4.8-10.8)
[2020-08-11 06:26] LABS: ALBUMIN 2.7 g/dL (3.5-5.0); CREATININE 0.6 mg/dL (0.5-1.5); MAGNESIUM 3.2 mg/dL (1.80-2.40); PHOSPHORUS 3.9 mg/dL (2.5-4.9); POTASSIUM 4.2 mmol/L (3.5-5.1); TOTAL PROTEIN, SERUM 5.9 g/dL (6.0-8.3)
[2020-08-11 07:30] VITALS: BP 135/78
--- NOTE | 2020-08-11 07:52 | NUR ---
DR LA PATIENT STATED THAT HE WAS TOLD HE WOULD HAVE A COLONOSCOPY TODAY. NO ORDERS AT THIS TIME. PATIENT IS ON A FULL LIQUID DIET. DR LA HAS BEEN PAGED VIA ANSWERING SERVICE FOR CLARIFICATION.
[2020-08-11] MEDS: ENOXAPARIN SODIUM 30 MG/0.3 ML SQ SCH (09:00)
[2020-08-11] MEDS: SODIUM CHLORIDE 0.9% 1000ML 1,000 ML IV SCH ×2 (09:15→22:35)
[2020-08-11] MEDS: FAMOTIDINE/PF 20 MG/2 ML VIAL IV SCH ×2 (09:53→20:15)
[2020-08-11] MEDS: LUBIPROSTONE 24 MCG CAP PO SCH ×2 (09:54→17:00)
[2020-08-11] MEDS: CLOTRIMAZOLE 30 GM CREAM.GM. TP SCH ×2 (09:54→20:16)
[2020-08-11] MEDS: THIAMINE HCL 100 MG/ML 2ML VIAL IVP SCH (09:54)
[2020-08-11 11:00] VITALS: BP 137/85
[2020-08-11 16:00] VITALS: BP 139/73
[2020-08-11 19:00] VITALS: BP 144/77
[2020-08-12 00:13] VITALS: BP 132/80
--- NOTE | 2020-08-12 03:31 | NUR ---
PT A/OX3. DENIES ABDOMINAL PAIN. USES 3L OF 02 VIA NC, SATS AT 95%. ONE LOOSE BM. AMBULATING TO BR WITH A STEADY GAIT. WILL CONTINUE TO MONITOR.
[2020-08-12 03:55] VITALS: BP 131/71
--- NOTE | 2020-08-12 04:00 | NUR ---
REFUSING IVF. WANTS TO BE DISCONNECTED.
[2020-08-12 04:41] LABS: BASOPHILS % (AUTO) 0.8 % (0.0-5.0); EOSINOPHILS % (AUTO) 5.9 % (0.0-8.0); LYMPHOCYTES % (AUTO) 17.2 % (21.0-51.0); MEAN CORPUSCULAR HEMOGLOBIN 29.3 pg (27.0-33.0); MEAN CORPUSCULAR HGB CONC 33.7 g/dL (32.0-36.0); MEAN CORPUSCULAR VOLUME 86.8 fL (79-99); MONOCYTES % (AUTO) 17.2 % (3.0-13.0); NEUTROPHILS % (AUTO) 57.5 % (40.0-77.0); PLATELET COUNT (AUTO) 317 K/uL (130-400); RED BLOOD CELL COUNT(AUTO) 4.03 MIL/uL (4.50-6.20); RED CELL DISTRIBUTION WIDTH 13.1 % (11.0-15.5); WHITE BLOOD COUNT (AUTO) 4.9 K/uL (4.8-10.8)
[2020-08-12 05:15] LABS: ALBUMIN 2.6 g/dL (3.5-5.0); BILIRUBIN,TOTAL 0.7 mg/dL (0.2-1.0); PHOSPHORUS 3.6 mg/dL (2.5-4.9); TOTAL PROTEIN, SERUM 5.7 g/dL (6.0-8.3)
[2020-08-12 05:20] LABS: CREATININE 0.5 mg/dL (0.5-1.5)
[2020-08-12] MEDS: METOCLOPRAMIDE 10 MG/2 ML VIAL IVP SCH (06:34)
[2020-08-12 08:08] VITALS: BP 134/75
[2020-08-12] MEDS: CLOTRIMAZOLE 30 GM CREAM.GM. TP SCH (08:58)
[2020-08-12] MEDS: FAMOTIDINE/PF 20 MG/2 ML VIAL IV SCH (09:03)
[2020-08-12] MEDS: THIAMINE HCL 100 MG/ML 2ML VIAL IVP SCH (09:03)
[2020-08-12] MEDS: ENOXAPARIN SODIUM 30 MG/0.3 ML SQ SCH (09:03)
[2020-08-12] MEDS: LUBIPROSTONE 24 MCG CAP PO SCH (09:03)
[2020-08-12] MEDS ORDERED: AZIT500T4 PO (09:19)
[2020-08-12] MEDS ORDERED: METO5 PO (09:19)
== END 2020-08-12 10:27 | disposition home or self-care (01) | DRG 388 ==
LOC: EDH 18:26 → EDHIP 18:27 → 4AH 08-01 08:48 → 2CH 08-04 13:53 → 4CH 08-06 17:10
PROVIDERS: ADMIT Family Medicine; ATTEND Family Medicine
PROC: 0DB98ZX Excision of Duodenum, Via Natural or Artificial Opening Endoscopic, Diagnostic (ICD-10-PCS; 2020-08-02)
PROC: 0DB68ZX Excision of Stomach, Via Natural or Artificial Opening Endoscopic, Diagnostic (ICD-10-PCS; 2020-08-02)
PROC: 0DB38ZX Excision of Lower Esophagus, Via Natural or Artificial Opening Endoscopic, Diagnostic (ICD-10-PCS; 2020-08-02)
PROC: 0D7M8ZZ Dilation of Descending Colon, Via Natural or Artificial Opening Endoscopic (ICD-10-PCS; 2020-08-03)
PROC: 0D7N8ZZ Dilation of Sigmoid Colon, Via Natural or Artificial Opening Endoscopic (ICD-10-PCS; 2020-08-03)
PROC: 0D9670Z Drainage of Stomach with Drainage Device, Via Natural or Artificial Opening (ICD-10-PCS; principal; 2020-08-04)
PROC: 5A09357 Assistance with Respiratory Ventilation, Less than 24 Consecutive Hours, Continuous Positive Airway Pressure (ICD-10-PCS; 2020-08-04)
PROC: 5A09357 Assistance with Respiratory Ventilation, Less than 24 Consecutive Hours, Continuous Positive Airway Pressure (ICD-10-PCS; 2020-08-07)
PROC: 5A09357 Assistance with Respiratory Ventilation, Less than 24 Consecutive Hours, Continuous Positive Airway Pressure (ICD-10-PCS; 2020-08-08)
PROC: 5A09357 Assistance with Respiratory Ventilation, Less than 24 Consecutive Hours, Continuous Positive Airway Pressure (ICD-10-PCS; 2020-08-09)
PROC: 5A09357 Assistance with Respiratory Ventilation, Less than 24 Consecutive Hours, Continuous Positive Airway Pressure (ICD-10-PCS; 2020-08-10)
DX: K56.609 Unspecified intestinal obstruction, unspecified as to partial versus complete obstruction (principal); J69.0 Pneumonitis due to inhalation of food and vomit; J96.02 Acute respiratory failure with hypercapnia; J96.01 Acute respiratory failure with hypoxia; E87.2 Acidosis; F17.213 Nicotine dependence, cigarettes, with withdrawal; J98.11 Atelectasis; F10.230 Alcohol dependence with withdrawal, uncomplicated; K55.9 Vascular disorder of intestine, unspecified; K59.39 Other megacolon; K21.9 Gastro-esophageal reflux disease without esophagitis; K59.00 Constipation, unspecified; K57.90 Diverticulosis of intestine, part unspecified, without perforation or abscess without bleeding; I10 Essential (primary) hypertension; E83.39 Other disorders of phosphorus metabolism; E83.42 Hypomagnesemia; I25.10 Atherosclerotic heart disease of native coronary artery without angina pectoris; I25.2 Old myocardial infarction; J45.909 Unspecified asthma, uncomplicated; K21.00 Gastro-esophageal reflux disease with esophagitis, without bleeding; K29.70 Gastritis, unspecified, without bleeding; K29.80 Duodenitis without bleeding; K64.0 First degree hemorrhoids; K40.20 Bilateral inguinal hernia, without obstruction or gangrene, not specified as recurrent; Z20.828 Contact with and (suspected) exposure to other viral communicable diseases; Y90.9 Presence of alcohol in blood, level not specified; K44.9 Diaphragmatic hernia without obstruction or gangrene; M47.815 Spondylosis without myelopathy or radiculopathy, thoracolumbar region; Z80.1 Family history of malignant neoplasm of trachea, bronchus and lung; Z86.73 Personal history of transient ischemic attack (TIA), and cerebral infarction without residual deficits; Z87.11 Personal history of peptic ulcer disease; Z91.19 Patient's noncompliance with other medical treatment and regimen
CPT/HCPCS: 36415; 36600; 43239; 45393; 71045; 74018; 74176; 74177; 80048; 80053; 80076; 80202; 81003; 82105; 82140; 82378; 82435; 82550; 82803; 82947; 82948; 83605; 83690; 83735; 83880; 84100; 84132; 84145; 84295; 84484; 85018; 85025; 85027; 85610; 85651; 85730; 86140; 86316; 86850; 86900; 86901; 87040; 87077; 87186; 87426; 93005; 94640; 94660; 94664; 94667; 94668; 97039; G0378; J1170; J1650; J1885; J1940; J1956; J2060; J2212; J2405; J2543; J2704; J2765; J3370; J3411; J3475; J3480; J3490; J7030; J7040; J7050; J7608; Q9963; Q9967; U0003

== ENCOUNTER 2020-08-14 17:32 | Emergency (ER) | payer SELFPAY ==
[~2020-08-14 17:32] MED LIST: AZIT500T4 PO; METO5 PO
[2020-08-14] MEDS ORDERED: FENTANYL CITRATE PF 50 MCG/1 ML 2ML VIAL ONE (18:03)
[2020-08-14] MEDS ORDERED: SODIUM CHLORIDE 0.9% 1000ML 1,000 ML IV ONE (18:04)
[2020-08-14] MEDS ORDERED: SODIUM CHLORIDE 0.9% 100 ML IV ONE (18:09)
[2020-08-16] MEDS ORDERED: DICY20TA11 PO (06:42)
[2020-08-16] MEDS ORDERED: METO10TA3 PO (06:42)
[2020-08-16] MEDS ORDERED: SIME125C81 PO (06:42)
== END 2020-08-14 19:50 | disposition home or self-care (01) ==
LOC: EDH 17:32
DX: R10.9 Unspecified abdominal pain (principal); R14.0 Abdominal distension (gaseous); Z87.01 Personal history of pneumonia (recurrent)
CPT/HCPCS: 71045; 74018; 96365; 96375; 99284; J3010; J7030

== ENCOUNTER 2020-12-13 07:12 | Day surgery (SDC) | payer MEDICARE ==
[~2020-12-13] VITALS: Ht 172.7 cm; Wt 72.6 kg
[2020-12-13] MEDS ORDERED: 0.9%NACL 1000ML 1,000 ML IV ONE (07:49)
[2020-12-13 07:50] VITALS: BP 113/83
[2020-12-13] MEDS ORDERED: PROPOFOL 10 MG/ML 20ML VIAL IV ONE (08:57)
[2020-12-13 09:05] VITALS: BP 112/68
[2020-12-13 09:10] VITALS: BP 107/71
[2020-12-13 09:15] VITALS: BP 107/72
[2020-12-13 09:25] VITALS: BP 108/76
[2020-12-13 09:35] VITALS: BP 94/64
== END 2020-12-13 09:45 | disposition home or self-care (01) ==
LOC: ENDO 07:12 → DAH 07:12 → ENDO 09:45
PROVIDERS: ATTEND Surgery
DX: K94.01 Colostomy hemorrhage (principal); Z20.822 Contact with and (suspected) exposure to COVID-19; I10 Essential (primary) hypertension; Z83.3 Family history of diabetes mellitus; Z82.49 Family history of ischemic heart disease and other diseases of the circulatory system; Z80.1 Family history of malignant neoplasm of trachea, bronchus and lung; Z80.9 Family history of malignant neoplasm, unspecified; Z87.891 Personal history of nicotine dependence; Y83.8 Other surgical procedures as the cause of abnormal reaction of the patient, or of later complication, without mention of misadventure at the time of the procedure
CPT/HCPCS: 44388; A4215 ×2; A4221; A4222; A4223; A4606; A4620; A4657; A4663; C9803; J2704; J7030; U0003

== ENCOUNTER 2022-10-31 19:55 | Emergency (ER) | payer MEDICARE ==
[~2022-10-31] VITALS: Ht 172.7 cm; Wt 72.6 kg
[2022-10-31] MEDS: ACETAMINOPHEN WITH CODEINE 1 TAB TAB ONE (22:33)
[2022-10-31] MEDS: ACETAMINOPHEN WITH CODEINE 1 TAB TAB PO ONE (22:34)
[2022-10-31] MEDS: NEOMYCIN/POLYMYXIN/HC OTIC SUSP 10ML BOTTLE AS SCH (22:36)
[2022-10-31] MEDS ORDERED: CORTSOL AS (22:41)
[2022-10-31] MEDS ORDERED: ACET-2079 PO (22:41)
== END 2022-10-31 22:57 | disposition home or self-care (01) ==
LOC: EDH 19:55
DX: H60.92 Unspecified otitis externa, left ear (principal)

== ENCOUNTER 2023-09-05 14:35 | Emergency (ER) | payer MEDICARE ==
[~2023-09-05] VITALS: Ht 170.2 cm; Wt 74.8 kg
[~2023-09-05 14:35] MED LIST changes: +ACET-2079 PO; -AZIT500T4 PO; +CORTSOL AS; -METO5 PO
[2023-09-05 14:43] VITALS: BP 120/58; PULSE 110; RESP 16
[2023-09-05] MEDS ORDERED: CORTSOL AD (18:58)
[2023-09-05] MEDS ORDERED: CEFTRIAXONE 1G VIAL IM ONE (19:00)
[2023-09-05] MEDS ORDERED: IBUPROFEN 600 MG TABLET PO ONE (19:00)
[2023-09-05 19:41] LABS: INFLUENZA TYPE A Negative For Type A (NEGATIVE); INFLUENZA TYPE B Negative For Type B (NEGATIVE)
[2023-09-05 19:43] LABS: SARS-CoV-2, RNA, NAAT POSITIVE SARS CoV-2 (NEGATIVE)
== END 2023-09-05 19:53 | disposition home or self-care (01) ==
LOC: EDH 14:35
DX: U07.1 COVID-19 (principal); H60.92 Unspecified otitis externa, left ear; Z79.899 Other long term (current) drug therapy
CPT/HCPCS: 87804 ×2; 36415; 87635; 96372; 99283; G0481; C9803; J0696